=== PATIENT | male | born 1975 | race Two or more races ===

== ENCOUNTER 2020-08-20 16:31 | Inpatient (IN) | payer OTHER ==
[2020-08-20] MEDS ORDERED: IBUPROFEN 400 MG TABLET (FP) PO PRN (21:03)
[2020-08-20] MEDS ORDERED: P-EPHED 60MG/TRIPROLIDI 2.5MG TABLET PO PRN (21:03)
[2020-08-20] MEDS ORDERED: MAGNESIUM CITRATE 300 ML BOTTLE PO PRN (21:03)
[2020-08-20] MEDS ORDERED: guaiFENesin 200 MG/10 ML 10 ML UNIT-DOSE CUPS PO PRN (21:03)
[2020-08-20] MEDS ORDERED: MAG HYDROX/AL HYDROX/SIMETH 30 ML UNIT-DOSE CUP PO PRN (21:03)
[2020-08-20] MEDS ORDERED: LOPERAMIDE HCL 2 MG CAPSULE PO PRN (21:03)
[2020-08-20] MEDS ORDERED: ACETAMINOPHEN 325 MG TABLET (FP) PO PRN (21:03)
[2020-08-20 21:43] VITALS: BMI 29.6
[2020-08-20] MEDS ORDERED: TUBERCULIN PPD 5 TU/0.1ML VIAL ID ONE (23:12)
[2020-08-20] MEDS: THIAMINE HCL 100 MG TABLET (FP) PO SCH (23:13)
[2020-08-20] MEDS: MELATONIN 5 MG TABLETS PO SCH (23:19)
[2020-08-21] MEDS: NICOTINE 21 MG/24 HOURS TOPICAL PATCH TD SCH (10:00)
[2020-08-21] MEDS: PRENATAL VITAMINS W/ FOLIC ACID TABLET (FP) PO SCH (10:00)
[2020-08-21] MEDS ORDERED: NICOTINE 7 MG/24 HOURS TOPICAL PATCH TD SCH (10:00)
[2020-08-21] MEDS: NICOTINE POLACRILEX 2 MG GUM BC PRN ×5 (10:01→23:22)
[2020-08-21 10:18] LABS: HEMATOCRIT 46.3 % (35.4-49); HEMOGLOBIN 15.9 GM/dL (11.7-16.9); MCH 29.8 pg (25.7-33.7); MCHC 34.3 g/dl (32.0-35.9); MEAN CELL VOLUME 86.9 fl (80-96); MEAN PLT VOLUME 9.6 fl (7.5-11.1); PLATELET COUNT 242 K/MM3 (134-434); RBC 5.32 M/mm3 (4.00-5.60); RDW 13.6 % (11.9-15.9); WHITE BLOOD COUNT 10.1 K/mm3 (4.0-10.0)
[2020-08-21 10:23] LABS: ALBUMIN 4.1 g/dl (3.4-5.0); BLOOD UREA NITROGEN 8.8 mg/dL (7-18); CALCIUM 9.2 mg/dL (8.5-10.1)
[2020-08-21 10:26] LABS: CREATININE 0.9 mg/dL (0.55-1.3)
[2020-08-21 10:28] LABS: BILIRUBIN,TOTAL 0.8 mg/dL (0.2-1)
[2020-08-21 10:29] LABS: TOT PROT 6.9 g/dl (6.4-8.2)
[2020-08-21] MEDS: busPIRone HCL 10 MG TABLET (FP) PO SCH ×2 (12:01→21:05)
[2020-08-21] MEDS ORDERED: ALBUTEROL SO4 HFA INHALER IH PRN (12:59)
[2020-08-21] MEDS: NALTREXONE HCL 50 MG TABLET PO SCH (13:56)
[2020-08-21] MEDS: ARIPiprazole 15 MG TABLET PO SCH (13:56)
[2020-08-21] MEDS ORDERED: PT OWN MED DRAWER 7, Y5N ONE (13:59)
[2020-08-21 14:40] LABS: URINE APPEARANCE CLEAR; URINE BILIRUBIN NEGATIVE (NEGATIVE); URINE COLOR YELLOW; URINE GLUCOSE (UA) 3+ (NEGATIVE); URINE KETONE NEGATIVE (NEGATIVE); URINE LEUK ESTERASE NEGATIVE (NEGATIVE); URINE NITRITE NEGATIVE (NEGATIVE); URINE PROTEIN NEGATIVE (NEGATIVE); URINE UROBILINOGEN 0.2 mg/dL (0.2-1.0)
[2020-08-21] MEDS: MELATONIN 5 MG TABLETS PO SCH (21:05)
[2020-08-21] MEDS: THIAMINE HCL 100 MG TABLET (FP) PO SCH (21:06)
[2020-08-22] MEDS ORDERED: MASKS NR ONE (08:50)
[2020-08-22] MEDS ORDERED: PT OWN MED DRAWER 7, Y5N ONE ×2 (08:54→21:26)
[2020-08-22] MEDS: ARIPiprazole 15 MG TABLET PO SCH (10:07)
[2020-08-22] MEDS: PRENATAL VITAMINS W/ FOLIC ACID TABLET (FP) PO SCH (10:08)
[2020-08-22] MEDS: NALTREXONE HCL 50 MG TABLET PO SCH (10:08)
[2020-08-22] MEDS: busPIRone HCL 10 MG TABLET (FP) PO SCH ×2 (10:08→21:26)
[2020-08-22] MEDS: NICOTINE 21 MG/24 HOURS TOPICAL PATCH TD SCH (10:08)
[2020-08-22] MEDS: NICOTINE POLACRILEX 2 MG GUM BC PRN ×4 (10:08→17:42)
[2020-08-22] MEDS ORDERED: INSULIN (NOVOLOG) ASPART 100 UNITS/ML 10ML VIAL ONE ×3 (15:49→22:33)
[2020-08-22] MEDS: MAGNESIUM HYDROX 2400MG/30ML ORAL SUSPENSION 30 ML CUP PO PRN (15:52)
[2020-08-22] MEDS: INSULIN SLIDING SCALE (NOVOLOG) 1 VIAL SQ SCH ×2 (15:52→21:29)
[2020-08-22] MEDS: metFORMIN HCL 500 MG TABLET (FP) PO SCH (17:09)
[2020-08-22] MEDS: THIAMINE HCL 100 MG TABLET (FP) PO SCH (21:25)
[2020-08-22] MEDS: MELATONIN 5 MG TABLETS PO SCH (21:25)
[2020-08-23] MEDS: NICOTINE POLACRILEX 2 MG GUM BC PRN ×5 (00:22→20:03)
[2020-08-23] MEDS: metFORMIN HCL 500 MG TABLET (FP) PO SCH ×2 (07:03→16:21)
[2020-08-23] MEDS ORDERED: INSULIN (NOVOLOG) ASPART 100 UNITS/ML 10ML VIAL ONE ×3 (07:05→16:18)
[2020-08-23] MEDS: INSULIN SLIDING SCALE (NOVOLOG) 1 VIAL SQ SCH ×4 (07:49→21:27)
[2020-08-23] MEDS: ARIPiprazole 15 MG TABLET PO SCH (09:52)
[2020-08-23] MEDS: PRENATAL VITAMINS W/ FOLIC ACID TABLET (FP) PO SCH (09:52)
[2020-08-23] MEDS: NICOTINE 21 MG/24 HOURS TOPICAL PATCH TD SCH (09:52)
[2020-08-23] MEDS: NALTREXONE HCL 50 MG TABLET PO SCH (09:53)
[2020-08-23] MEDS: busPIRone HCL 10 MG TABLET (FP) PO SCH ×2 (09:53→21:26)
[2020-08-23] MEDS: MAGNESIUM HYDROX 2400MG/30ML ORAL SUSPENSION 30 ML CUP PO PRN (16:22)
[2020-08-23] MEDS: MELATONIN 5 MG TABLETS PO SCH (21:26)
[2020-08-23] MEDS: THIAMINE HCL 100 MG TABLET (FP) PO SCH (21:26)
[2020-08-24] MEDS: metFORMIN HCL 500 MG TABLET (FP) PO SCH ×2 (06:38→16:50)
[2020-08-24] MEDS: NICOTINE POLACRILEX 2 MG GUM BC PRN ×3 (06:58→15:00)
[2020-08-24] MEDS: INSULIN SLIDING SCALE (NOVOLOG) 1 VIAL SQ SCH ×4 (07:38→21:17)
[2020-08-24] MEDS ORDERED: INSULIN (NOVOLOG) ASPART 100 UNITS/ML 10ML VIAL ONE ×4 (08:35→22:15)
[2020-08-24] MEDS: ARIPiprazole 15 MG TABLET PO SCH (09:58)
[2020-08-24] MEDS: busPIRone HCL 10 MG TABLET (FP) PO SCH ×2 (09:58→21:15)
[2020-08-24] MEDS: NICOTINE 21 MG/24 HOURS TOPICAL PATCH TD SCH (09:59)
[2020-08-24] MEDS: NALTREXONE HCL 50 MG TABLET PO SCH (09:59)
[2020-08-24] MEDS: PRENATAL VITAMINS W/ FOLIC ACID TABLET (FP) PO SCH (09:59)
[2020-08-24 10:06] LABS: SARS-CoV-2 NAA Not Detected (Not Detected)
[2020-08-24] MEDS: MAGNESIUM HYDROX 2400MG/30ML ORAL SUSPENSION 30 ML CUP PO PRN (13:07)
[2020-08-24] MEDS ORDERED: PT OWN MED DRAWER 7, Y5N ONE (14:42)
[2020-08-24] MEDS: MELATONIN 5 MG TABLETS PO SCH (21:15)
[2020-08-24] MEDS: THIAMINE HCL 100 MG TABLET (FP) PO SCH (21:15)
[2020-08-25] MEDS: metFORMIN HCL 500 MG TABLET (FP) PO SCH ×2 (07:37→16:53)
[2020-08-25] MEDS: INSULIN SLIDING SCALE (NOVOLOG) 1 VIAL SQ SCH ×4 (07:38→21:14)
[2020-08-25] MEDS ORDERED: INSULIN (NOVOLOG) ASPART 100 UNITS/ML 10ML VIAL ONE ×4 (07:39→21:13)
[2020-08-25] MEDS ORDERED: PT OWN MED DRAWER 7, Y5N ONE (08:52)
[2020-08-25] MEDS: busPIRone HCL 10 MG TABLET (FP) PO SCH ×2 (10:17→21:15)
[2020-08-25] MEDS: PRENATAL VITAMINS W/ FOLIC ACID TABLET (FP) PO SCH (10:17)
[2020-08-25] MEDS: NALTREXONE HCL 50 MG TABLET PO SCH (10:17)
[2020-08-25] MEDS: ARIPiprazole 15 MG TABLET PO SCH (10:17)
[2020-08-25] MEDS: NICOTINE 21 MG/24 HOURS TOPICAL PATCH TD SCH (10:20)
[2020-08-25] MEDS: NICOTINE POLACRILEX 2 MG GUM BC PRN ×3 (14:51→21:16)
[2020-08-25] MEDS ORDERED: MASKS NR ONE (20:56)
[2020-08-25] MEDS: MELATONIN 5 MG TABLETS PO SCH (21:14)
[2020-08-25] MEDS: THIAMINE HCL 100 MG TABLET (FP) PO SCH (21:15)
[2020-08-26] MEDS: metFORMIN HCL 500 MG TABLET (FP) PO SCH ×2 (06:28→17:10)
[2020-08-26] MEDS: NICOTINE POLACRILEX 2 MG GUM BC PRN ×7 (06:30→23:29)
[2020-08-26] MEDS: INSULIN SLIDING SCALE (NOVOLOG) 1 VIAL SQ SCH ×4 (07:48→21:49)
[2020-08-26] MEDS ORDERED: INSULIN (NOVOLOG) ASPART 100 UNITS/ML 10ML VIAL ONE ×4 (08:34→21:31)
[2020-08-26] MEDS: ARIPiprazole 15 MG TABLET PO SCH (09:43)
[2020-08-26] MEDS: busPIRone HCL 10 MG TABLET (FP) PO SCH ×2 (09:43→21:18)
[2020-08-26] MEDS: PRENATAL VITAMINS W/ FOLIC ACID TABLET (FP) PO SCH (09:44)
[2020-08-26] MEDS: NICOTINE 21 MG/24 HOURS TOPICAL PATCH TD SCH (09:44)
[2020-08-26] MEDS: NALTREXONE HCL 50 MG TABLET PO SCH (09:44)
[2020-08-26] MEDS ORDERED: PT OWN MED DRAWER 7, Y5N ONE (14:26)
[2020-08-26] MEDS: THIAMINE HCL 100 MG TABLET (FP) PO SCH (21:18)
[2020-08-26] MEDS: MELATONIN 5 MG TABLETS PO SCH (21:18)
[2020-08-27] MEDS: metFORMIN HCL 500 MG TABLET (FP) PO SCH ×2 (06:52→17:16)
[2020-08-27] MEDS: NICOTINE POLACRILEX 2 MG GUM BC PRN ×4 (06:54→15:13)
[2020-08-27] MEDS ORDERED: PT OWN MED DRAWER 7, Y5N ONE ×4 (06:54→20:36)
[2020-08-27] MEDS: INSULIN SLIDING SCALE (NOVOLOG) 1 VIAL SQ SCH ×4 (07:59→21:25)
[2020-08-27] MEDS ORDERED: INSULIN (NOVOLOG) ASPART 100 UNITS/ML 10ML VIAL ONE ×3 (08:00→21:42)
[2020-08-27] MEDS: ARIPiprazole 15 MG TABLET PO SCH (09:43)
[2020-08-27] MEDS: NICOTINE 21 MG/24 HOURS TOPICAL PATCH TD SCH (09:44)
[2020-08-27] MEDS: PRENATAL VITAMINS W/ FOLIC ACID TABLET (FP) PO SCH (09:44)
[2020-08-27] MEDS: busPIRone HCL 10 MG TABLET (FP) PO SCH ×2 (09:44→21:23)
[2020-08-27] MEDS: NALTREXONE HCL 50 MG TABLET PO SCH (09:44)
[2020-08-27] MEDS: THIAMINE HCL 100 MG TABLET (FP) PO SCH (21:23)
[2020-08-27] MEDS: MELATONIN 5 MG TABLETS PO SCH (21:23)
[2020-08-28] MEDS: metFORMIN HCL 500 MG TABLET (FP) PO SCH ×2 (06:57→16:42)
[2020-08-28] MEDS: NICOTINE POLACRILEX 2 MG GUM BC PRN ×7 (06:59→21:34)
[2020-08-28] MEDS ORDERED: INSULIN (NOVOLOG) ASPART 100 UNITS/ML 10ML VIAL ONE ×4 (07:00→21:07)
[2020-08-28] MEDS: INSULIN SLIDING SCALE (NOVOLOG) 1 VIAL SQ SCH ×4 (07:54→21:08)
[2020-08-28] MEDS: PRENATAL VITAMINS W/ FOLIC ACID TABLET (FP) PO SCH (09:52)
[2020-08-28] MEDS: busPIRone HCL 10 MG TABLET (FP) PO SCH ×2 (09:52→21:05)
[2020-08-28] MEDS: NICOTINE 21 MG/24 HOURS TOPICAL PATCH TD SCH (09:52)
[2020-08-28] MEDS: ARIPiprazole 15 MG TABLET PO SCH (09:52)
[2020-08-28] MEDS: NALTREXONE HCL 50 MG TABLET PO SCH (09:53)
[2020-08-28] MEDS: MAGNESIUM HYDROX 2400MG/30ML ORAL SUSPENSION 30 ML CUP PO PRN (12:48)
[2020-08-28] MEDS ORDERED: PT OWN MED DRAWER 7, Y5N ONE (18:47)
[2020-08-28] MEDS: THIAMINE HCL 100 MG TABLET (FP) PO SCH (21:04)
[2020-08-28] MEDS: MELATONIN 5 MG TABLETS PO SCH (21:05)
[2020-08-29] MEDS: NICOTINE POLACRILEX 2 MG GUM BC PRN ×5 (00:05→17:32)
[2020-08-29] MEDS ORDERED: PT OWN MED DRAWER 7, Y5N ONE ×2 (03:25→21:21)
[2020-08-29] MEDS: metFORMIN HCL 500 MG TABLET (FP) PO SCH ×2 (07:11→16:50)
[2020-08-29] MEDS: INSULIN SLIDING SCALE (NOVOLOG) 1 VIAL SQ SCH ×4 (08:04→21:42)
[2020-08-29] MEDS: NICOTINE 21 MG/24 HOURS TOPICAL PATCH TD SCH (09:05)
[2020-08-29] MEDS: ARIPiprazole 15 MG TABLET PO SCH (09:06)
[2020-08-29] MEDS: NALTREXONE HCL 50 MG TABLET PO SCH (09:06)
[2020-08-29] MEDS: busPIRone HCL 10 MG TABLET (FP) PO SCH ×2 (09:06→21:21)
[2020-08-29] MEDS: PRENATAL VITAMINS W/ FOLIC ACID TABLET (FP) PO SCH (09:07)
[2020-08-29] MEDS ORDERED: INSULIN (NOVOLOG) ASPART 100 UNITS/ML 10ML VIAL ONE ×3 (12:03→21:40)
[2020-08-29] MEDS: MAGNESIUM HYDROX 2400MG/30ML ORAL SUSPENSION 30 ML CUP PO PRN (18:45)
[2020-08-29] MEDS: MELATONIN 5 MG TABLETS PO SCH (21:21)
[2020-08-29] MEDS: THIAMINE HCL 100 MG TABLET (FP) PO SCH (21:21)
[2020-08-30] MEDS: NICOTINE POLACRILEX 2 MG GUM BC PRN ×10 (03:05→23:51)
[2020-08-30] MEDS: metFORMIN HCL 500 MG TABLET (FP) PO SCH ×2 (07:06→16:52)
[2020-08-30] MEDS: INSULIN SLIDING SCALE (NOVOLOG) 1 VIAL SQ SCH ×4 (07:47→21:25)
[2020-08-30] MEDS ORDERED: PT OWN MED DRAWER 7, Y5N ONE ×2 (08:16→22:03)
[2020-08-30] MEDS: NALTREXONE HCL 50 MG TABLET PO SCH (09:17)
[2020-08-30] MEDS: PRENATAL VITAMINS W/ FOLIC ACID TABLET (FP) PO SCH (09:17)
[2020-08-30] MEDS: ARIPiprazole 15 MG TABLET PO SCH (09:17)
[2020-08-30] MEDS: busPIRone HCL 10 MG TABLET (FP) PO SCH ×2 (09:17→21:23)
[2020-08-30] MEDS: NICOTINE 21 MG/24 HOURS TOPICAL PATCH TD SCH (09:17)
[2020-08-30] MEDS ORDERED: INSULIN (NOVOLOG) ASPART 100 UNITS/ML 10ML VIAL ONE ×3 (11:25→22:04)
[2020-08-30] MEDS: MELATONIN 5 MG TABLETS PO SCH (21:23)
[2020-08-30] MEDS: THIAMINE HCL 100 MG TABLET (FP) PO SCH (21:23)
[2020-08-31] MEDS: NICOTINE POLACRILEX 2 MG GUM BC PRN ×7 (06:23→22:04)
[2020-08-31] MEDS: metFORMIN HCL 500 MG TABLET (FP) PO SCH ×2 (07:04→17:02)
[2020-08-31 07:30] VITALS: BP 110/70; PULSE 80; TEMP 97.1
[2020-08-31] MEDS: INSULIN SLIDING SCALE (NOVOLOG) 1 VIAL SQ SCH ×4 (07:45→21:38)
[2020-08-31] MEDS ORDERED: INSULIN (NOVOLOG) ASPART 100 UNITS/ML 10ML VIAL ONE ×3 (07:47→16:54)
[2020-08-31] MEDS: NALTREXONE HCL 50 MG TABLET PO SCH (10:08)
[2020-08-31] MEDS: busPIRone HCL 10 MG TABLET (FP) PO SCH ×2 (10:08→21:40)
[2020-08-31] MEDS: ARIPiprazole 15 MG TABLET PO SCH (10:09)
[2020-08-31] MEDS: NICOTINE 21 MG/24 HOURS TOPICAL PATCH TD SCH (10:09)
[2020-08-31] MEDS: PRENATAL VITAMINS W/ FOLIC ACID TABLET (FP) PO SCH (10:09)
[2020-08-31] MEDS ORDERED: PT OWN MED DRAWER 7, Y5N ONE ×3 (10:22→22:02)
[2020-08-31] MEDS: MELATONIN 5 MG TABLETS PO SCH (21:38)
[2020-08-31] MEDS: THIAMINE HCL 100 MG TABLET (FP) PO SCH (21:38)
[2020-09-01] MEDS: metFORMIN HCL 500 MG TABLET (FP) PO SCH (06:09)
[2020-09-01] MEDS: INSULIN SLIDING SCALE (NOVOLOG) 1 VIAL SQ SCH (07:45)
[2020-09-01] MEDS ORDERED: INSULIN (NOVOLOG) ASPART 100 UNITS/ML 10ML VIAL ONE (07:52)
[2020-09-01] MEDS ORDERED: PT OWN MED DRAWER 7, Y5N ONE (09:14)
[2020-09-01] MEDS: ARIPiprazole 15 MG TABLET PO SCH (10:45)
[2020-09-01] MEDS: NICOTINE 21 MG/24 HOURS TOPICAL PATCH TD SCH (10:45)
[2020-09-01] MEDS: busPIRone HCL 10 MG TABLET (FP) PO SCH (10:45)
[2020-09-01] MEDS: PRENATAL VITAMINS W/ FOLIC ACID TABLET (FP) PO SCH (10:45)
[2020-09-01] MEDS: NALTREXONE HCL 50 MG TABLET PO SCH (10:45)
== END 2020-09-01 09:25 | disposition home or self-care (01) | DRG 772 ==
LOC: YASAS 16:31 → Y3E 21:55
PROVIDERS: ADMIT Allergy & Immunology; ATTEND Allergy & Immunology
PROC: HZ42ZZZ Group Counseling for Substance Abuse Treatment, Cognitive-Behavioral (ICD-10-PCS; principal; 2020-08-20)
DX: F10.20 Alcohol dependence, uncomplicated (principal); F14.20 Cocaine dependence, uncomplicated; F12.20 Cannabis dependence, uncomplicated; F17.210 Nicotine dependence, cigarettes, uncomplicated; F25.9 Schizoaffective disorder, unspecified; F31.9 Bipolar disorder, unspecified; F19.282 Other psychoactive substance dependence with psychoactive substance-induced sleep disorder; F19.280 Other psychoactive substance dependence with psychoactive substance-induced anxiety disorder; F19.24 Other psychoactive substance dependence with psychoactive substance-induced mood disorder; E11.9 Type 2 diabetes mellitus without complications; Z79.84 Long term (current) use of oral hypoglycemic drugs; J45.909 Unspecified asthma, uncomplicated; M54.30 Sciatica, unspecified side
CPT/HCPCS: 36415; 80053; 81003; 82962; 85027; 86780; 93005; 93010; C9803; U0003; U0005